=== PATIENT | female | born 1955 | race Caucasian/White ===

== ENCOUNTER 2017-12-27 07:56 | Outpatient (CLI) | payer MEDICAID, SELFPAY ==
[2017-12-27 11:34] LABS: ALT 29 U/L (12-78); AST 18 U/L (15-37); Albumin 3.6 g/dL (3.4-5.0); Alkaline Phosphatase 87 U/L (46-116); Anion Gap 8.4 mmol/L (3-11); BUN 16 mg/dL (7-18); Bilirubin, Total 0.3 mg/dL (0.2-1.0); CO2 29.6 mmol/L (21.0-32.0); CREATININE 0.75 mg/dL (0.55-1.02); Calcium 8.5 mg/dL (8.5-10.1); Chloride 105 mmol/L (98-107); Cholesterol 294 mg/dL (50-200); Glucose 107 mg/dL (70-100); HDL Cholesterol 61 mg/dL (40-60); LDL CHOLESTEROL 213 mg/dL (<100); Potassium 4.9 mmol/L (3.5-5.1); Sodium 143 mmol/L (136-145); TSH (W/Ref FT4) 1.42 uIU/mL (0.358-3.74); Total Protein 6.9 g/dL (6.4-8.2); Triglyceride 95 mg/dL (30-150)
== END 2017-12-27 08:16 ==
PROVIDERS: PCP Family Medicine; Visit Provider Family Medicine
DX: E78.00 Pure hypercholesterolemia, unspecified (principal); Z82.49 Family history of ischemic heart disease and other diseases of the circulatory system; Z00.00 Encounter for general adult medical examination without abnormal findings
CPT/HCPCS: 36415; 80053; 80061; 83721; 84443

== ENCOUNTER 2019-01-16 10:14 | Outpatient (CLI) | payer MEDICARE, BC, SELFPAY ==
[2019-01-16 11:36] LABS: ALT 22 U/L (14-59); AST 19 U/L (15-37); Albumin 3.7 g/dL (3.4-5.0); Alkaline Phosphatase 92 U/L (46-116); Anion Gap 9.7 mmol/L (3-11); BUN 14 mg/dL (7-18); Bilirubin, Total 0.6 mg/dL (0.2-1.0); CO2 28.3 mmol/L (21.0-32.0); CREATININE 0.74 mg/dL (0.55-1.02); Calcium 8.9 mg/dL (8.5-10.1); Calculated LDL 228 mg/dL; Chloride 104 mmol/L (98-107); Cholesterol 307 mg/dL (50-200); Glucose 103 mg/dL (70-100); HDL Cholesterol 56 mg/dL (40-60); Potassium 4.5 mmol/L (3.5-5.1); Sodium 142 mmol/L (136-145); Triglyceride 116 mg/dL (30-150)
== END 2019-01-16 10:34 ==
PROVIDERS: PCP Family Medicine; Visit Provider Family Medicine
DX: E78.00 Pure hypercholesterolemia, unspecified (principal); Z82.49 Family history of ischemic heart disease and other diseases of the circulatory system
CPT/HCPCS: 36415; 80053; 80061

== ENCOUNTER 2019-06-05 08:02 | Outpatient (CLI) | payer MEDICARE, BC, SELFPAY ==
[2019-06-05 11:58] LABS: ALT 23 U/L (14-59); Calculated LDL 224 mg/dL (<100); Cholesterol 301 mg/dL (<200); HDL Cholesterol 57 mg/dL (40-60); Triglyceride 103 mg/dL (<150)
== END 2019-06-05 08:22 ==
PROVIDERS: PCP Family Medicine; Visit Provider Family Medicine
DX: E78.00 Pure hypercholesterolemia, unspecified (principal)
CPT/HCPCS: 80061; 84460

== ENCOUNTER 2019-10-18 02:30 | Outpatient (CLI) | payer MEDICARE, BC, SELFPAY ==
[2019-10-18 13:02] LABS: ALT 30 U/L (14-59); Calculated LDL 156 mg/dL (<100); Cholesterol 232 mg/dL (<200); HDL Cholesterol 63 mg/dL (40-60); Triglyceride 68 mg/dL (<150)
== END 2019-10-18 02:50 ==
PROVIDERS: PCP Family Medicine; Visit Provider Family Medicine
DX: E78.00 Pure hypercholesterolemia, unspecified (principal)
CPT/HCPCS: 36415; 80061; 84460

== ENCOUNTER 2020-01-03 02:04 | Outpatient (CLI) | payer MEDICARE, BC, SELFPAY ==
[2020-01-03 12:55] LABS: HCT 38.2 % (36.0-46.0); HGB 12.9 g/dL (11.2-15.7); MCH 32.7 pg (27.0-33.0); MCHC 33.8 % (32.0-36.0); MCV 96.7 fL (80-95); MPV 9.4 fL (8.0-11.0); Platelet Count 292 10^3/uL (130-400); RBC 3.95 10^6/uL (3.93-5.22); RDW 12.3 % (11.7-14.6); WBC 6.57 10^3/uL (4.4-10.8)
[2020-01-03 13:18] LABS: ALT 27 U/L (14-59); AST 17 U/L (15-37); Albumin 3.9 g/dL (3.4-5.0); Alkaline Phosphatase 85 U/L (46-116); Anion Gap 8.3 mmol/L (3-11); BUN 13 mg/dL (7-18); Bilirubin, Total 0.6 mg/dL (0.2-1.0); CO2 26.7 mmol/L (21.0-32.0); CREATININE 0.74 mg/dL (0.55-1.02); Calcium 8.8 mg/dL (8.5-10.1); Calculated LDL 147 mg/dL (<100); Chloride 106 mmol/L (98-107); Cholesterol 223 mg/dL (<200); Glucose 101 mg/dL (74-106); HDL Cholesterol 62 mg/dL (40-60); Potassium 4.3 mmol/L (3.5-5.1); Sodium 141 mmol/L (136-145); Total Protein 6.9 g/dL (6.4-8.2); Triglyceride 71 mg/dL (<150)
== END 2020-01-03 02:24 ==
PROVIDERS: PCP Family Medicine; Visit Provider Family Medicine
DX: E78.00 Pure hypercholesterolemia, unspecified (principal); Z82.49 Family history of ischemic heart disease and other diseases of the circulatory system
CPT/HCPCS: 36415; 80053; 80061; 85027

== ENCOUNTER 2020-11-05 03:36 | Outpatient (CLI) | payer MEDICARE, BC, SELFPAY ==
[2020-11-05 12:08] LABS: ALT 28 U/L (14-59); AST 25 U/L (15-37); Albumin 3.9 g/dL (3.4-5.0); Alkaline Phosphatase 83 U/L (46-116); Anion Gap 8.4 mmol/L (3-11); BUN 18 mg/dL (7-18); Bilirubin, Total 0.4 mg/dL (0.2-1.0); CO2 26.6 mmol/L (21.0-32.0); CREATININE 0.8 mg/dL (0.55-1.02); Calculated LDL 156 mg/dL (<100); Chloride 106 mmol/L (98-107); Cholesterol 237 mg/dL (<200); Glucose 99 mg/dL (74-106); HDL Cholesterol 68 mg/dL (40-60); Potassium 4.8 mmol/L (3.5-5.1); Sodium 141 mmol/L (136-145); Total Protein 7.1 g/dL (6.4-8.2); Triglyceride 69 mg/dL (<150)
[2020-11-05 12:18] LABS: Hemoglobin A1C 5.9 % (<5.7)
== END 2020-11-05 03:37 | disposition home or self-care (01) ==
LOC: LOS 03:36
PROVIDERS: PCP Nurse Practitioner Family; Visit Provider Nurse Practitioner Family
DX: E78.00 Pure hypercholesterolemia, unspecified (principal); R73.09 Other abnormal glucose; R03.0 Elevated blood-pressure reading, without diagnosis of hypertension
CPT/HCPCS: 36415; 80053; 80061; 83036

== ENCOUNTER 2021-09-20 11:28 | Emergency (ER) | payer MEDICARE, BC, SELFPAY ==
[2021-09-20 11:30] VITALS: BP 149/80; PULSE 74; RESP 18; TEMP 36; O2SAT 100
--- NOTE | 2021-09-20 11:45 | DI.RAD_ITS ---
Exam(s) XR KNEE RT 3V AP,LAT,PEPPER EXAM: XR KNEE RT 3V AP,LAT,PEPPER CLINICAL HISTORY: fall with medial pain. TECHNIQUE: 2D digital imaging was performed of the right knee. Three views obtained. AP, lateral an d PA tunnel views were obtained. COMPARISON: No previous for comparison. FINDINGS: BONES: No acute fracture is present. No bony destructive lesion is seen. JOINTS: The knee is normally aligned. No joint effusion is seen. Moderate tricompartment degenerative changes are present. The findings are most marked in the patellofemoral joint. SOFT TISSUE: Normal. IMPRESSION: No acute fracture or dislocation. DATA REPOSITORY: RADIATION DOSE DELIVERED:
--- NOTE | 2021-09-20 11:55 | ED.GENADUL_ITS ---
Discharge Plan Disposition Patient Disposition: HOME Condition: Stable Discharge Details Clinical Impression: Right knee sprain Primary Care Provider: Kenia Umana ED Provider: Rashad Beltran Home Meds and New Rx's Prescriptions: No Action tmrbgqvwprf-U7-Hyiebdpjr serr 1,500-400-100 mg-unit-mg tablet 1 tab PO DAILY Rx Instructions: give after food/meal hawthorn 250 mg capsule PO epinephrine 0.3 mg/0.3 mL auto-injector 0.3 mg IM ONCE glucosamine QWf-eye-xfwdgcrwnu 500-167-400 mg tablet 1 tab PO DAILY multivitamin [One Daily Multivitamin] tablet 1 tab PO DAILY ascorbic acid (vitamin C) 1,000 mg tablet 1 g PO DAILY Label Comments: occassional jordana (Zingiber officinalis) 500 mg capsule 500 mg PO DAILY atorvastatin 20 mg tablet 20 mg PO QPM Qty: 90 4RF Discharge Instructions Instructions: Knee Sprain (ED) Additional Instructions: You may continue to take ydjw-qmv-aytgano acetaminophen or ibuprofen as needed for discomfort. Wear the provided knee brace at any time of activity but it is recommended that you rest over the next 3 days and slowly increase activity as tolerated by discomfort. You may apply ice and also elevate to help with swelling and discomfort. If not improving in the next 2 weeks please follow-up with your primary care provider for reassessment. Referrals: Kenia Umana, [employer] [Primary Care Provider] - 2 weeks (If not improving) Discharge Data Discharge Date/Time-TO BE ENTERED AT DEPARTURE: 09/20/21 12:46 Medical Decision Making Patient presenting to the emergency department for chief complaint of right knee injury. She states history of previous left knee injury that is created some intermittent instability. Yesterday she started to have some instability of left knee which then caused her right knee to buckle causing a fall. Today she has had discomfort to the proximal calf and medial aspect of the knee. She does state that she has been a little more ambulatory today compared to yesterday. Patient denies all other injury or trauma. Physical exam does show some slight tenderness to proximal calf along with the proximal tibia. Patient does state some discomfort with anterior drawer testing. Exam is otherwise unremarkable. Will perform radiological imaging given proximal tibial tenderness to palpation Review of imaging shows no acute signs of fracture or dislocation no joint effusion noted. Will place patient in hinged knee brace and recommend rest over the next 3 days with slow increase of weightbearing activities as tolerated by discomfort. Patient encouraged to follow-up with primary care provider if not improving over the next 2 weeks after discussion of diagnosis and plan of care patient has no further needs, questions, or concerns and states clear understanding to return to the emergency department for any worsening symptoms. This documentation was generated using [employer] dictation system, please disregard any oddities of phrase or misspellings. Imaging Data Radiologic Study: Imaging: X-Ray Radiologist's impression: FINDINGS: BONES: No acute fracture is present. No bony destructive lesion is seen. JOINTS: The knee is normally aligned. No joint effusion is seen. Moderate tricompartment degenerative changes are present. The findings are most marked in the patellofemoral joint. SOFT TISSUE: Normal. IMPRESSION: No acute fracture or dislocation. HPI General Mode of arrival: ambulatory . Date/Time Provider Initiated Documentation: 09/20/21 11:37 . Limitations to Documentation: no limitations . Information obtained by: patient, family and RN notes reviewed . History of Present Illness 66 year old F presents to the emergency department with the chief complaint of Right knee injury, described as mild and moderate, with intensity rated at 3. Quality is described as aching, and is localized to the right and lower extremity. Patient reports no radiation. Patient started experiencing this day(s) (1) and it has been constant. No relieving factors improve symptom(s), Movement worsens symptoms . Patient notes no other symptoms.. Patient did receive the following treatments prior to arrival, none Related Data Home Medications Medication Instructions Recorded Confirmed epinephrine 0.3 mg/0.3 mL 0.3 mg IM ONCE 12/13/17 06/18/21 injection, auto-injector glucosamine FKo-hrg-xykrdbhdwdo 1 tab PO DAILY 12/13/17 09/20/21 500 mg-167 mg-400 mg tablet multivitamin (One Daily 1 tab PO DAILY 12/13/17 09/20/21 Multivitamin tablet) hawthorn 250 mg capsule mg PO 12/15/17 06/18/21 ascorbic acid (vitamin C) 1,000 mg 1 g PO DAILY 10/27/20 09/20/21 tablet jordana (Zingiber officinalis) 500 500 mg PO DAILY 10/27/20 06/18/21 mg capsule atorvastatin 20 mg tablet 20 mg PO QPM #90 tabs 03/10/21 06/18/21 glucosamine YRd-M7-Veucrfeub 1 tab PO DAILY 06/18/21 09/20/21 ritu 1,500 mg-400 unit-100 mg tablet Previous Rx's Medication Instructions Recorded atorvastatin 20 mg tablet 20 mg PO QPM #90 tabs 03/10/21 Allergies Allergy/AdvReac Type Severity Reaction Status Date / Time venom-honey bee Allergy Severe Verified 09/20/21 11:37 General Stated Complaint: Orthopedic FLORIN: 4 Review of Systems Narrative: 6 systems reviewed and unremarkable except what is marked below. Constitutional Constitutional: Denies frequent falls Cardiovascular Cardiovascular: Denies syncope Musculoskeletal Musculoskeletal: Reports as per HPI, Denies back pain, Denies deformity, Reports arthralgias and Reports joint swelling Neurologic Neurologic: Denies syncope and Denies frequent falls PFSH All Active Problems (Updated 09/20/21 @ 12:31 by Rashad Beltran NP) Right knee sprain (Acute) Prediabetes (Acute) Hypercholesteremia (Acute) BMI 39.0-39.9,adult (Acute 10/27/16) Elevated LDL cholesterol level (Chronic) 03/2021- Pt refusing 40 mg atorvastatin- agrees to 20 mg Family history of premature CAD (Chronic) Medical History Fracture of humerus (07/05/13) Impingement syndrome of left shoulder Mild. Exercises advised and if worse will refer to PT. Surgical History Fracture, Open Treatment (07/05/13) RIGHT SHOULDER ([facility]) History of laparoscopy History of open reduction and internal fixation (ORIF) procedure , Ectopic laparascopic intervention Family History Mother , CVA at age 88. Essential hypertension Stroke Father , NE at age 46. Essential hypertension Heart disease Myocardial infarction Hypertension Brother Essential hypertension Hypothyroidism Brother , ACCIDENTAL at age 60. Diabetes Maternal Grandfather , AGE 62 Heart disease Paternal Grandfather , AGE 80 Essential hypertension Heart disease Paternal Grandmother , AGE UNKNOWN No problems noted. 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 Pets and animals: Yes Sexually active: Yes Do you think of yourself as: lesbian/dukes/homosexual Current gender identity: female What is your relationship status?: How often do you talk on the phone with friends or family?: three or more times per week How often do you get together with friends or relatives?: three or more times per week How often do you attend pentecostalism or episcopal services?: 4 or more times per year Do you belong to any clubs or organized social groups?: yes Panel score (0-1 are the most socially isolated patients): 4 What type of physical activity do you participate in: other 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 Duration: > 90 minutes/day Frequency: daily Kiah/Quaker: Willie Seatbelt use: always Helmet use: Yes Helmet use: always Drive intox or ride w/intox driver's license reviewing officer: No Do you feel safe at home: Yes Do you feel safe in your relationship?: Yes Exam Const General: cooperative, no acute distress and not ill appearing Orientation: alert, awake and oriented x3 Resp Effort & Inspection: normal respiratory effort, able to speak in complete sentences and no respiratory distress Cardio Rate: regular rate Rhythm: regular rhythm Pulses: posterior tibial pulses present Skin General skin exam: no rashes or lesions noted Neuro General: patient alert, patient awake, patient oriented x3, moves all extremities and no focal motor deficits Sensory Exam: no sensory deficits noted Extrem General: normal exam except as noted Right lower extremity: knee Details: tenderness Location: of the tibial tuberosity, abnormal ROM Details: pain with active ROM during Details: in flex ion, knee ligament exam normal Details: posterior drawer test normal, valgus stress test normal, varus stress test normal and pain with axial loading and knee ligament exam abnormal Details: anterior drawer test normal Details: pain noted; no swelling and no crepitus Left lower extremity: normal to inspection and full ROM Course Vital Signs Vital signs: Vital Signs Temperature 36 C L 09/20/21 11:30 Pulse 74 09/20/21 11:30 Respiratory Rate 18 09/20/21 11:30 Blood Pressure 149/80 H 09/20/21 11:30 Pulse Oximetry 100 09/20/21 11:30 Temperature 36 C L 09/20/21 11:30 Temperature Source Skin 09/20/21 11:30 Pulse 74 09/20/21 11:30 Respiratory Rate 18 09/20/21 11:30 Respiratory Effort 09/20/21 11:38 Blood Pressure 149/80 H 09/20/21 11:30 Blood Pressure Position Sitting 09/20/21 11:30 Pulse Oximetry 100 09/20/21 11:30 Pain Level 3 09/20/21 11:30
== END 2021-09-20 12:46 | disposition home or self-care (01) ==
PROVIDERS: Emergency Provider Nurse Practitioner Family; PCP Nurse Practitioner
DX: S83.8X1A Sprain of other specified parts of right knee, initial encounter (principal); W18.39XA Other fall on same level, initial encounter
CPT/HCPCS: 29505; 73562; 99283

== ENCOUNTER 2021-09-29 01:48 | Outpatient (CLI) | payer MEDICARE, BC, SELFPAY | END 2021-09-29 01:49 | disposition home or self-care (01) | LOC: LOS 01:48 | PROVIDERS: PCP Nurse Practitioner; Visit Provider Nurse Practitioner ==

== ENCOUNTER 2021-11-22 03:48 | Outpatient (CLI) | payer MEDICARE, BC, SELFPAY ==
[2021-11-22 08:28] LABS: ALT 25 U/L (14-59); AST 18 U/L (15-37); Albumin 3.5 g/dL (3.4-5.0); Alkaline Phosphatase 80 U/L (46-116); Anion Gap 7.4 mmol/L (3-11); BUN 11 mg/dL (7-18); Bilirubin, Total 0.4 mg/dL (0.2-1.0); CO2 29.6 mmol/L (21.0-32.0); CREATININE 0.7 mg/dL (0.55-1.02); Calcium 8.6 mg/dL (8.5-10.1); Calculated LDL 232 mg/dL (<100); Chloride 103 mmol/L (98-107); Cholesterol 317 mg/dL (<200); Glucose 106 mg/dL (74-106); HDL Cholesterol 66 mg/dL (40-60); Potassium 4.3 mmol/L (3.5-5.1); Sodium 140 mmol/L (136-145); Total Protein 7.6 g/dL (6.4-8.2); Triglyceride 97 mg/dL (<150)
== END 2021-11-22 03:49 | disposition home or self-care (01) ==
LOC: LBO 03:48
PROVIDERS: PCP Family Medicine; Visit Provider Family Medicine
DX: E78.00 Pure hypercholesterolemia, unspecified (principal)
CPT/HCPCS: 36415; 80053; 80061

== ENCOUNTER 2022-12-22 03:43 | Outpatient (CLI) | payer MEDICARE, BC, SELFPAY ==
[2022-12-22 13:14] LABS: ALT 23 U/L (14-59); AST 18 U/L (15-37); Albumin 3.7 g/dL (3.4-5.0); Alkaline Phosphatase 78 U/L (46-116); Anion Gap 7.8 mmol/L (3-11); BUN 15 mg/dL (7-18); Bilirubin, Total 0.4 mg/dL (0.2-1.0); CO2 28.2 mmol/L (21.0-32.0); CREATININE 0.8 mg/dL (0.55-1.02); Calcium 8.8 mg/dL (8.5-10.1); Calculated LDL 151 mg/dL (<100); Chloride 102 mmol/L (98-107); Cholesterol 242 mg/dL (<200); Estimated GFR 79.71 (mL/min/1.73m2); Glucose 101 mg/dL (74-106); HDL Cholesterol 80 mg/dL (40-60); Potassium 4.2 mmol/L (3.5-5.1); Sodium 138 mmol/L (136-145); Total Protein 7.4 g/dL (6.4-8.2); Triglyceride 58 mg/dL (<150)
== END 2022-12-22 03:44 | disposition home or self-care (01) ==
LOC: LOS 03:43
PROVIDERS: PCP Family Medicine; Visit Provider Family Medicine
DX: E78.00 Pure hypercholesterolemia, unspecified (principal)
CPT/HCPCS: 36415; 80053; 80061

== ENCOUNTER 2024-02-08 03:32 | Outpatient (CLI) | payer MEDICARE, BC, SELFPAY ==
[2024-02-08 09:54] LABS: Calculated LDL 147 mg/dL (<100); Cholesterol 241 mg/dL (<200); HDL Cholesterol 82 mg/dL (40-60); Triglyceride 61 mg/dL (<150)
== END 2024-02-08 03:33 | disposition home or self-care (01) ==
LOC: LBO 03:32
PROVIDERS: PCP Family Medicine; Referring Provider Family Medicine; Visit Provider Family Medicine
DX: E78.00 Pure hypercholesterolemia, unspecified (principal)
CPT/HCPCS: 36415; 80061

== ENCOUNTER 2024-12-10 08:17 | Outpatient (CLI) | payer MEDICARE, BC, SELFPAY ==
--- NOTE | 2024-12-10 06:47 | DI.US_ITS ---
Exam(s) US LOWER EXTREMITY VENOUS RT EXAM: US LOWER EXTREMITY VENOUS RT CLINICAL HISTORY: ? DVT; assess for broderick's cyst,rt calf pain, swelling and rt knee pain, oa TECHNIQUE: Grayscale, color, and doppler imaging of the deep venous system of the right lower extremity was performed. COMPARISON: US RIGHT BREAST ULTRASOUND from 10/10/2007 FINDINGS: There is no evidence of intraluminal thrombus and there is normal compression and augmentation demonstrated within the common femoral vein, femoral vein, and popliteal vein. In the ipsilateral calf the interrogated veins also exhibit normal compression/ augmentation properties. The ipsilateral saphenofemoral junction is patent. Incidentally noted is a Broderick cyst in the popliteal fossa measuring 2.7 by 2.8 x 0.9 cm. There also appears to be knee joint effusion. Also synovial thickening IMPRESSION: 1. No evidence of DVT in the right lower extremity. 2. Abnormal right knee findings as above. DATA REPOSITORY:
--- NOTE | 2024-12-10 06:47 | DI.RAD_ITS ---
Exam(s) XR KNEE RT 3V AP,LAT,PEPPER EXAM: XR KNEE RT 3V AP,LAT,PEPPER CLINICAL HISTORY: Interval assessment OA,worsening pain rt knee, ,[id number]. TECHNIQUE: 2D digital imaging was performed. Three views. COMPARISON: CR XR KNEE RT 3V AP,LAT,PEPPER from 09/20/2021 FINDINGS: BONES: No acute fracture is present. No bony destructive lesion is seen. JOINTS: There is severe narrowing of the patellofemoral joint, with a jtnh-dp-gnqr appearance. There is prominent periarticular spurring. The knee is normally aligned. No joint effusion is seen. Arm there is moderate severe narrowing of the lateral femoral tibial joint space is has worsened compared with the previous exam. There is spurring from the femoral condyles and tibial plateaus. SOFT TISSUE: Normal. IMPRESSION: Degenerative changes, greatest at the patellofemoral joint. DATA REPOSITORY: RADIATION DOSE DELIVERED:
== END 2024-12-10 08:37 ==
LOC: DI 08:17
PROVIDERS: PCP Family Medicine; Visit Provider Nurse Practitioner Adult Health
DX: M25.561 Pain in right knee (principal)
CPT/HCPCS: 73562; 93971

== ENCOUNTER → 2025-02-20 10:37 | Outpatient (BNVA) | payer MEDICARE, BC, SELFPAY | PROVIDERS: PCP Family Medicine; Referring Provider Family Medicine; Visit Provider Physician Assistant | DX: M17.11 Unilateral primary osteoarthritis, right knee (principal) | CPT/HCPCS: 99203 ==